=== PATIENT | male | born 1970 | race Caucasian/White ===

== ENCOUNTER 2017-08-03 17:09 | Emergency (ER) | payer OTHER ==
[2017-08-03 20:16] LABS: BASOPHIL 0.1 % (0-2); EOSINOPHIL 0 % (0-5); HCT 46.6 % (42.0-52.0); HGB 15.6 g/dl (13.2-18.0); LYMPHOCYTE 6.1 % (15-48); MCH 29.1 pg (25.0-31.0); MCHC 33.5 g/dL (32.0-36.0); MCV 86.8 fL (78.0-100.0); MONOCYTE 5.9 % (0-12); MPV 10.6 fL (6.0-9.5); NEUTROPHIL 87.9 % (41-80); PLT 151 K/uL (150-400); RBC 5.37 M/uL (4.70-6.00); RDW 13.3 % (11.5-14.0)
[2017-08-03 20:36] LABS: ALBUMIN 3.9 g/dL (3.5-5.0); BILIRUBIN - TOTAL 1.2 mg/dL (0.1-1.0); GLOBULIN (CALCULATION) 3.2 g/dL (2.2-4.2); TOTAL PROTEIN 7.1 g/dL (6.4-8.3)
== END 2017-08-03 22:05 | disposition home or self-care (01) ==
LOC: FER 17:09
PROVIDERS: Emergency Medicine Emergency Medical Services
DX: L03.115 Cellulitis of right lower limb (principal); Z88.0 Allergy status to penicillin; Z86.14 Personal history of Methicillin resistant Staphylococcus aureus infection
CPT/HCPCS: 36415; 71010; 80053; 85025; 85379; 87040; 93971